=== PATIENT | male | born 1960 | race Caucasian/White ===

== ENCOUNTER → 2018-02-12 | Outpatient (CLI) | payer BC | LOC: RAD 12:40 | DX: M79.662 Pain in left lower leg (principal) ==

== ENCOUNTER 2022-03-08 10:39 | Emergency (ER) | payer BC ==
[2022-03-08] MEDS ORDERED: CITALOPRAM40 MG PO (10:48)
[2022-03-08] MEDS ORDERED: LISINOPRIL40 MG PO (10:48)
[2022-03-08] MEDS ORDERED: NORVASC 10MG10 MG PO (10:48)
[2022-03-08] MEDS ORDERED: METOPROLOL SUC100 M1 PO (10:48)
[2022-03-08] MEDS ORDERED: PRAVASTATIN SOD20 MG PO (10:48)
[2022-03-08 11:06] LABS: BASO # 0.03 K/mm3 (0.02-0.10); EOS # 0.14 K/mm3 (0.04-0.40); EOS % 2.1 % (0.0-4.0); HEMATOCRIT 46.8 % (42.0-52.0); HEMOGLOBIN 16.1 g/dL (13.5-18.0); LYMPH# 2.28 K/mm3 (1.50-4.00); MEAN CELL VOLUME 98 fl (78-100); MEAN CORPUSCULAR HEMOGLOBIN 34 pg (27-31); MEAN CORPUSCULAR HGB CONC 34 g/dL (33-37); MEAN PLATELET VOLUME 10.1 fl (7.4-10.4); MONO # 0.73 K/mm3 (0.20-0.80); NEU # 3.52 K/mm3 (1.40-6.50); PLATELET COUNT 201 K/mm3 (130-400); RED BLOOD COUNT 4.78 M/mm3 (4.20-5.60); RED CELL DISTRIBUTION WIDTH 12.2 % (11.5-14.5); WHITE BLOOD COUNT 6.7 K/mm3 (4.8-10.8)
[2022-03-08 11:11] LABS: ALBUMIN 4.2 g/dL (3.4-4.8); POTASSIUM 3.8 mmol/L (3.5-5.1)
[2022-03-08 11:15] LABS: TOTAL BILIRUBIN 1.2 mg/dL (0.2-1.2)
[2022-03-08 11:21] LABS: PROTHROMBIN TIME 10.5 SECONDS (9.0-12.0)
[2022-03-08] MEDS ORDERED: CEPHALEXIN500 M1 PO (12:59)
[2022-03-08] MEDS ORDERED: NORCO 325 MG-51 TA1 PO (13:37)
[2022-03-08 14:17] VITALS: BP 181/66
== END 2022-03-08 13:12 | disposition home or self-care (01) ==
LOC: ED 10:39
PROVIDERS: Physician Assistant
DX: S06.0X9A Concussion with loss of consciousness of unspecified duration, initial encounter (principal); S02.2XXA Fracture of nasal bones, initial encounter for closed fracture; S01.21XA Laceration without foreign body of nose, initial encounter; Z88.0 Allergy status to penicillin; Z28.310 Unvaccinated for COVID-19; W55.22XA Struck by cow, initial encounter
CPT/HCPCS: 90715; J3010

== ENCOUNTER → 2022-03-15 | Outpatient (CLI) | payer SELFPAY ==
[~2022-03-15] MED LIST: CEPHALEXIN500 M1 PO; CITALOPRAM40 MG PO; LISINOPRIL40 MG PO; METOPROLOL SUC100 M1 PO; NORCO 325 MG-51 TA1 PO; NORVASC 10MG10 MG PO; PRAVASTATIN SOD20 MG PO
== END ==
LOC: AMSURD 13:28
DX: Z48.02 Encounter for removal of sutures (principal)